=== PATIENT | female | born 2000 | race Caucasian/White ===

== ENCOUNTER 2020-06-03 19:44 | Emergency (ER) | payer MEDICAID, OTHER ==
[2020-06-03] MEDS ORDERED: DICYCLOMINE HCL 20 MG TAB ONE (20:22)
[2020-06-03 20:26] LABS: BASOPHILS % (AUTO) 0.4 % (0.0-5.0); EOSINOPHILS % (AUTO) 1.6 % (0.0-8.0); HEMATOCRIT 36.3 % (36-48); LYMPHOCYTES % (AUTO) 18.5 % (21.0-51.0); MEAN CORPUSCULAR HEMOGLOBIN 28.2 pg (27.0-33.0); MEAN CORPUSCULAR HGB CONC 33.3 g/dL (32.0-36.0); MEAN CORPUSCULAR VOLUME 84.6 fL (79-99); MONOCYTES % (AUTO) 8.2 % (3.0-13.0); NEUTROPHILS % (AUTO) 70.9 % (40.0-77.0); PLATELET COUNT (AUTO) 277 K/uL (130-400); RED BLOOD CELL COUNT(AUTO) 4.29 MIL/uL (4.00-5.50); RED CELL DISTRIBUTION WIDTH 14.6 % (11.0-15.5); WHITE BLOOD COUNT (AUTO) 13.5 K/uL (4.8-10.8)
[2020-06-03 20:27] LABS: APPEARANCE,URINE Clear (CLEAR); BILIRUBIN,URINE Negative (NEGATIVE); COLOR,URINE Yellow (YELLOW); GLUCOSE, URINE (UA) Negative (NEGATIVE); KETONES,URINE Negative (NEGATIVE); LEUKOCYTE ESTERASE ,URINE Negative (NEGATIVE); NITRATE,URINE Negative (NEGATIVE); OCCULT BLOOD,URINE Negative (NEGATIVE); PH,URINE 6.5 (5.0-8.0); PROTEIN,URINE Negative (NEGATIVE)
[2020-06-03 20:28] LABS: HCG,QUAL RESULT POSITIVE (NEGATIVE)
[2020-06-03 20:35] LABS: CREATININE 0.8 mg/dL (0.5-1.5); POTASSIUM 3.7 mmol/L (3.5-5.1)
[2020-06-03 20:41] LABS: ALBUMIN 3.4 g/dL (3.5-5.0); BILIRUBIN,TOTAL 0.2 mg/dL (0.2-1.0); TOTAL PROTEIN, SERUM 7.1 g/dL (6.0-8.3)
== END 2020-06-03 22:37 | disposition home or self-care (01) ==
LOC: EDH 19:44
DX: O26.891 Other specified pregnancy related conditions, first trimester (principal); K29.00 Acute gastritis without bleeding; Z3A.01 Less than 8 weeks gestation of pregnancy; Z72.0 Tobacco use
CPT/HCPCS: 36415; 76705; 76801; 80053; 81003; 81025; 83690; 84702; 85025

== ENCOUNTER 2020-08-08 14:33 | Emergency (ER) | payer MEDICAID ==
[~2020-08-08] VITALS: Ht 149.9 cm; Wt 52.2 kg
[2020-08-08] MEDS ORDERED: 0.9%NACL 500ML 500 ML IV ONE (14:34)
[2020-08-08 14:35] VITALS: BP 109/53
[2020-08-08 15:36] LABS: BASOPHILS % (AUTO) 0.1 % (0.0-5.0); EOSINOPHILS % (AUTO) 0.8 % (0.0-8.0); HEMATOCRIT 38.5 % (36-48); LYMPHOCYTES % (AUTO) 7.6 % (21.0-51.0); MEAN CORPUSCULAR HEMOGLOBIN 29.6 pg (27.0-33.0); MEAN CORPUSCULAR HGB CONC 33.2 g/dL (32.0-36.0); MEAN CORPUSCULAR VOLUME 88.9 fL (79-99); MONOCYTES % (AUTO) 3.6 % (3.0-13.0); NEUTROPHILS % (AUTO) 87.4 % (40.0-77.0); PLATELET COUNT (AUTO) 224 K/uL (130-400); RED BLOOD CELL COUNT(AUTO) 4.33 MIL/uL (4.00-5.50); RED CELL DISTRIBUTION WIDTH 15.4 % (11.0-15.5); WHITE BLOOD COUNT (AUTO) 11.8 K/uL (4.8-10.8)
[2020-08-08] MEDS ORDERED: NACL 0.9% 1000ML 1,000 ML IV ONE (17:15)
[2020-08-08] MEDS ORDERED: METOCLOPRAMIDE 10 MG/2 ML VIAL IVP ONE (17:15)
[2020-08-08] MEDS ORDERED: METOCLOPRAMIDE 10 MG/2 ML VIAL ONE (19:05)
[2020-08-08 19:53] LABS: APPEARANCE,URINE Turbid (CLEAR); BILIRUBIN,URINE Negative (NEGATIVE); COLOR,URINE Yellow (YELLOW); GLUCOSE, URINE (UA) Negative (NEGATIVE); KETONES,URINE Negative (NEGATIVE); LEUKOCYTE ESTERASE ,URINE Trace (NEGATIVE); NITRATE,URINE Negative (NEGATIVE); OCCULT BLOOD,URINE Negative (NEGATIVE); PH,URINE 7.5 (5.0-8.0); PROTEIN,URINE Negative (NEGATIVE)
[2020-08-08 20:04] LABS: AMORPHOUS SEDIMENT,UR Many /LPF (None Seen); BACTERIA,URINE Rare /HPF (None Seen); RBC,URINE None Seen /HPF (0-1); WBC,URINE 0-1 /HPF (0-1)
[2020-08-08] MEDS ORDERED: METO10TA41 PO (20:39)
[2020-08-08 20:41] VITALS: BP 104/63
== END 2020-08-08 20:54 | disposition home or self-care (01) ==
LOC: EDH 14:33
DX: O20.0 Threatened abortion (principal); O99.282 Endocrine, nutritional and metabolic diseases complicating pregnancy, second trimester; E86.0 Dehydration; O21.8 Other vomiting complicating pregnancy; Z3A.17 17 weeks gestation of pregnancy
CPT/HCPCS: 36415; 76805; 81001; 84702; 84703; 85025; 86900; 86901; 96361; 96374; 99284; J2765; J7040

== ENCOUNTER 2020-09-09 20:53 | Emergency (ER) | payer MEDICAID ==
[~2020-09-09] VITALS: Ht 149.9 cm; Wt 54.4 kg
[~2020-09-09 20:53] MED LIST: METO10TA41 PO
== END 2020-09-09 22:37 | disposition left against medical advice (07) ==
LOC: EDH 20:53
DX: N93.9 Abnormal uterine and vaginal bleeding, unspecified (principal); Z53.21 Procedure and treatment not carried out due to patient leaving prior to being seen by health care provider

== ENCOUNTER 2020-11-21 08:35 | Observation (INO) | payer MEDICAID ==
[~2020-11-21] VITALS: Ht 149.9 cm; Wt 54.4 kg
[2020-11-21 08:38] VITALS: BP 112/55
[2020-11-21 09:51] LABS: BILIRUBIN,URINE Negative (NEGATIVE); COLOR,URINE Yellow (YELLOW); GLUCOSE, URINE (UA) Negative (NEGATIVE); KETONES,URINE Negative (NEGATIVE); LEUKOCYTE ESTERASE ,URINE Moderate (NEGATIVE); NITRATE,URINE Negative (NEGATIVE); OCCULT BLOOD,URINE Negative (NEGATIVE); PH,URINE 7.5 (5.0-8.0); PROTEIN,URINE Negative (NEGATIVE)
[2020-11-21 09:52] LABS: APPEARANCE,URINE SLIGHTLY CLOUDY (CLEAR)
[2020-11-21 09:53] LABS: RBC,URINE 0-1 /HPF (0-1); SQUAMOUS EPITHELIAL CELL,UR Rare /HPF (0-2)
[2020-11-21 09:54] LABS: AMORPHOUS SEDIMENT,UR Few /LPF (None Seen); BACTERIA,URINE Few /HPF (None Seen)
[2020-11-21 09:58] LABS: AMPHET/METH SCREEN,URINE NEGATIVE (NEGATIVE); BARBITURATE SCREEN, URINE NEGATIVE (NEGATIVE); BENZODIAZEPINES SCREEN,URINE NEGATIVE (NEGATIVE); CANNABINOID SCREEN,URINE NEGATIVE (NEGATIVE); COCAINE SCREEN,URINE NEGATIVE (NEGATIVE); OPIATE SCREEN,URINE NEGATIVE (NEGATIVE); PHENCYCLIDINE SCREEN,URINE NEGATIVE (NEGATIVE)
[2020-11-21] MEDS ORDERED: LACTATED RINGERS 1000ML IV SCH (10:30)
== END 2020-11-21 11:20 | disposition home or self-care (01) ==
LOC: EDH 08:35 → LDH 08:54
PROVIDERS: ADMIT Obstetrics & Gynecology; ATTEND Obstetrics & Gynecology
DX: O36.8130 Decreased fetal movements, third trimester, not applicable or unspecified (principal); O62.9 Abnormality of forces of labor, unspecified; Z3A.32 32 weeks gestation of pregnancy; Z79.899 Other long term (current) drug therapy
CPT/HCPCS: 59025; 76819; 80305; 81001; 87088; 96360; G0378 ×2; G0379; J7120

== ENCOUNTER 2021-01-01 03:59 | Inpatient (IN) | payer MEDICAID ==
[~2021-01-01] VITALS: Ht 149.9 cm; Wt 62.6 kg
[2021-01-01 04:32] LABS: APPEARANCE,URINE Clear (CLEAR); BILIRUBIN,URINE Negative (NEGATIVE); COLOR,URINE Yellow (YELLOW); GLUCOSE, URINE (UA) Negative (NEGATIVE); KETONES,URINE Negative (NEGATIVE); LEUKOCYTE ESTERASE ,URINE Moderate (NEGATIVE); NITRATE,URINE Negative (NEGATIVE); OCCULT BLOOD,URINE Negative (NEGATIVE); PH,URINE 6.5 (5.0-8.0); PROTEIN,URINE Negative (NEGATIVE)
[2021-01-01 04:39] LABS: AMPHET/METH SCREEN,URINE NEGATIVE (NEGATIVE); BARBITURATE SCREEN, URINE NEGATIVE (NEGATIVE); BENZODIAZEPINES SCREEN,URINE NEGATIVE (NEGATIVE); CANNABINOID SCREEN,URINE NEGATIVE (NEGATIVE); COCAINE SCREEN,URINE NEGATIVE (NEGATIVE); OPIATE SCREEN,URINE NEGATIVE (NEGATIVE); PHENCYCLIDINE SCREEN,URINE NEGATIVE (NEGATIVE)
[2021-01-01 04:57] LABS: BACTERIA,URINE Rare /HPF (None Seen); RBC,URINE None Seen /HPF (0-1); WBC,URINE 0-1 /HPF (0-1)
[2021-01-01 04:58] LABS: SQUAMOUS EPITHELIAL CELL,UR Few /HPF (0-2)
[2021-01-01] MEDS ORDERED: LACTATED RINGERS 1000ML IV PRN (05:00)
[2021-01-01] MEDS ORDERED: NALOXONE HCL 0.4 MG/1 ML ML IV PRN (06:30)
[2021-01-01] MEDS ORDERED: MEPERIDINE-PF 50 MG/ML SYG IVP PRN (06:30)
[2021-01-01] MEDS ORDERED: PROMETHAZINE HCL 25 MG/ML 1ML AMPULE IM PRN (06:30)
[2021-01-01] MEDS ORDERED: EPHEDRINE SULFATE 50 MG/ML AMPULE IVP PRN (06:30)
[2021-01-01] MEDS ORDERED: OXYTOCIN-LR 20 UNITS/1000 ML 1,000 ML IV SCH ×2 (06:30→20:00)
[2021-01-01] MEDS ORDERED: OXYTOCIN-LR 20 UNITS/1000 ML 1,000 ML IV ONE (06:30)
[2021-01-01] MEDS ORDERED: LACTATED RINGERS 1000ML 1,000 ML IV PRN (06:30)
[2021-01-01] MEDS ORDERED: LACTATED RINGERS 500 ML 500 ML IV PRN (06:30)
[2021-01-01 06:40] LABS: HEMATOCRIT 39.8 % (36-48); MEAN CORPUSCULAR HEMOGLOBIN 29.5 pg (27.0-33.0); MEAN CORPUSCULAR HGB CONC 32.9 g/dL (32.0-36.0); MEAN CORPUSCULAR VOLUME 89.6 fL (79-99); RED BLOOD CELL COUNT(AUTO) 4.44 MIL/uL (4.00-5.50); RED CELL DISTRIBUTION WIDTH 13.6 % (11.0-15.5); WHITE BLOOD COUNT (AUTO) 12.9 K/uL (4.8-10.8)
[2021-01-01 11:25] LABS: RAPID PLASMA REAGIN REACTIVE (NONREACTIVE)
[2021-01-01 11:26] LABS: RAPID PLASMA REAGIN TITER REACTIVE >1:16 (NONREACTIVE)
[2021-01-01] MEDS ORDERED: MISOPROSTOL 200 MCG TABLET ONE (15:22)
[2021-01-01] MEDS ORDERED: LIDOCAINE HCL 1% 20 ML VIAL ONE (18:57)
[2021-01-01] MEDS ORDERED: MEPERIDINE-PF 25 MG/ML SYG ONE (19:11)
[2021-01-01] MEDS ORDERED: MEPERIDINE-PF 25 MG/ML SYG IVP SCH (19:45)
[2021-01-01] MEDS ORDERED: BENZOCAINE/LANOLIN/ALOE VERA 60 ML AEROSOL TP PRN (20:00)
[2021-01-01] MEDS ORDERED: WITCH HAZEL 1 PAD TP PRN (20:00)
[2021-01-01] MEDS ORDERED: LANOLIN 30GM OINTMENT TP PRN (20:00)
[2021-01-01] MEDS ORDERED: DIPH,PERTUSS(ACELL),TET VAC/PF 0.5 ML VIAL IM PRN (20:00)
[2021-01-01] MEDS ORDERED: MEASLES/MUMPS/RUBELLA VACCINE, LIVE 0.5 ML/VIAL SQ PRN (20:00)
[2021-01-01 20:31] VITALS: BP 124/68
[2021-01-01] MEDS: DOCUSATE SODIUM 100 MG CAP PO SCH (20:57)
[2021-01-01] MEDS: IBUPROFEN 600 MG TABLET PO PRN (20:58)
[2021-01-01 21:58] VITALS: BP 127/63
[2021-01-01] MEDS: ACETAMINOPHEN WITH CODEINE 1 TAB TAB PO PRN (22:25)
[2021-01-01 23:18] VITALS: BP 118/73
[2021-01-02 03:51] VITALS: BP 106/54
[2021-01-02] MEDS: IBUPROFEN 600 MG TABLET PO PRN ×2 (04:21→16:08)
[2021-01-02 06:27] LABS: HEMATOCRIT 34.5 % (36-48); MEAN CORPUSCULAR HEMOGLOBIN 29.2 pg (27.0-33.0); MEAN CORPUSCULAR VOLUME 88.2 fL (79-99); RED BLOOD CELL COUNT(AUTO) 3.91 MIL/uL (4.00-5.50); RED CELL DISTRIBUTION WIDTH 13.9 % (11.0-15.5); WHITE BLOOD COUNT (AUTO) 21.8 K/uL (4.8-10.8)
[2021-01-02 07:20] VITALS: BP 110/71
[2021-01-02 08:14] LABS: HEPATITIS Bs ANTIGEN SCREEN P Negative (Negative)
[2021-01-02] MEDS: DOCUSATE SODIUM 100 MG CAP PO SCH ×2 (09:10→20:12)
[2021-01-02] MEDS: ACETAMINOPHEN WITH CODEINE 1 TAB TAB PO PRN ×2 (09:11→18:42)
[2021-01-02 11:34] VITALS: BP 105/58
[2021-01-02] MEDS ORDERED: PENICILLIN G BENZATHINE LA 1.2 MILUNITS/2 ML SYG IM SCH (15:00)
[2021-01-02 16:39] VITALS: BP 127/66
[2021-01-02] MEDS ORDERED: HEMORRHOIDAL OINTMENT 57 GM CREAM.GM. RC SCH (19:30)
[2021-01-02 19:40] VITALS: BP 98/43
[2021-01-02] MEDS: ACETAMINOPHEN 325 MG TAB PO PRN (20:13)
[2021-01-03 00:34] VITALS: BP 104/42
[2021-01-03 03:43] VITALS: BP 105/58
[2021-01-03] MEDS: IBUPROFEN 600 MG TABLET PO PRN ×2 (05:57→16:21)
[2021-01-03 09:19] VITALS: BP 114/60
[2021-01-03] MEDS: DOCUSATE SODIUM 100 MG CAP PO SCH (09:22)
[2021-01-03] MEDS: ACETAMINOPHEN 325 MG TAB PO PRN (09:23)
[2021-01-03 12:16] VITALS: BP 118/66
== END 2021-01-03 16:35 | disposition home or self-care (01) | DRG 560 ==
LOC: EDH 03:59 → LDH 04:00 → OBSVTOIN 04:00 → WSH 21:36
PROVIDERS: ADMIT Obstetrics & Gynecology; ATTEND Obstetrics & Gynecology
PROC: 10E0XZZ Delivery of Products of Conception, External Approach (ICD-10-PCS; principal; 2021-01-01)
PROC: 10907ZC Drainage of Amniotic Fluid, Therapeutic from Products of Conception, Via Natural or Artificial Opening (ICD-10-PCS; 2021-01-01)
PROC: 0W8NXZZ Division of Female Perineum, External Approach (ICD-10-PCS; 2021-01-01)
PROC: 3E0R3BZ Introduction of Anesthetic Agent into Spinal Canal, Percutaneous Approach (ICD-10-PCS; 2021-01-01)
PROC: 00HU33Z Insertion of Infusion Device into Spinal Canal, Percutaneous Approach (ICD-10-PCS; 2021-01-01)
DX: O98.12 Syphilis complicating childbirth (principal); A53.0 Latent syphilis, unspecified as early or late; O98.52 Other viral diseases complicating childbirth; D72.829 Elevated white blood cell count, unspecified; B00.9 Herpesviral infection, unspecified; O99.12 Other diseases of the blood and blood-forming organs and certain disorders involving the immune mechanism complicating childbirth; O69.1XX0 Labor and delivery complicated by cord around neck, with compression, not applicable or unspecified; Z37.0 Single live birth; Z3A.38 38 weeks gestation of pregnancy
CPT/HCPCS: 36415; 80305; 81001; 85027; 86592; 86701; 86780; 86850; 86900; 86901; 87088; 87340; 87390; A4314; G0378; J0561; J2175; J2590; J7120

== ENCOUNTER 2021-01-08 14:19 | Observation (INO) | payer MEDICAID ==
[~2021-01-08] VITALS: Ht 147.3 cm; Wt 59.0 kg
[2021-01-08] MEDS ORDERED: PENICILLIN G BENZATHINE LA 1.2 MILUNITS/2 ML SYG IM SCH (15:00)
[2021-01-08 15:05] VITALS: BP 113/62
[2021-01-08 15:30] VITALS: BP 113/65
== END 2021-01-08 15:35 | disposition home or self-care (01) ==
LOC: WSH 14:19
PROVIDERS: ADMIT Obstetrics & Gynecology; ATTEND Obstetrics & Gynecology
DX: O98.13 Syphilis complicating the puerperium (principal); A53.9 Syphilis, unspecified; D72.829 Elevated white blood cell count, unspecified
CPT/HCPCS: 96372; G0378; G0379; J0561

== ENCOUNTER 2021-06-24 13:20 | Emergency (ER) | payer MEDICAID ==
[~2021-06-24] VITALS: Ht 149.9 cm; Wt 45.4 kg
[2021-06-24] MEDS ORDERED: 0.9%NACL 1000ML 1,000 ML IV SCH (13:30)
[2021-06-24 13:48] LABS: APPEARANCE,URINE Cloudy (CLEAR); BILIRUBIN,URINE Negative (NEGATIVE); COLOR,URINE Dark Yellow (YELLOW); GLUCOSE, URINE (UA) Negative (NEGATIVE); KETONES,URINE 15 mg/dL (NEGATIVE); LEUKOCYTE ESTERASE ,URINE Moderate (NEGATIVE); NITRATE,URINE Negative (NEGATIVE); OCCULT BLOOD,URINE Negative (NEGATIVE); PH,URINE 6.5 (5.0-8.0); PROTEIN,URINE Trace mg/dL (NEGATIVE)
[2021-06-24 13:56] LABS: AMPHET/METH SCREEN,URINE NEGATIVE (NEGATIVE); BARBITURATE SCREEN, URINE NEGATIVE (NEGATIVE); BENZODIAZEPINES SCREEN,URINE POSITIVE (NEGATIVE); CANNABINOID SCREEN,URINE POSITIVE (NEGATIVE); COCAINE SCREEN,URINE POSITIVE (NEGATIVE); OPIATE SCREEN,URINE POSITIVE (NEGATIVE); PHENCYCLIDINE SCREEN,URINE NEGATIVE (NEGATIVE)
[2021-06-24 14:02] LABS: BASOPHILS % (AUTO) 0.5 % (0.0-5.0); EOSINOPHILS % (AUTO) 2.8 % (0.0-8.0); HEMATOCRIT 42.8 % (36-48); LYMPHOCYTES % (AUTO) 16.6 % (21.0-51.0); MEAN CORPUSCULAR HEMOGLOBIN 28.5 pg (27.0-33.0); MEAN CORPUSCULAR HGB CONC 32.2 g/dL (32.0-36.0); MEAN CORPUSCULAR VOLUME 88.2 fL (79-99); MONOCYTES % (AUTO) 11.7 % (3.0-13.0); NEUTROPHILS % (AUTO) 68.1 % (40.0-77.0); PLATELET COUNT (AUTO) 260 K/uL (130-400); RED BLOOD CELL COUNT(AUTO) 4.85 MIL/uL (4.00-5.50); RED CELL DISTRIBUTION WIDTH 13.3 % (11.0-15.5)
[2021-06-24 14:16] LABS: CREATININE 0.9 mg/dL (0.5-1.5); POTASSIUM 3.2 mmol/L (3.5-5.1)
[2021-06-24 14:17] LABS: ALBUMIN 3.5 g/dL (3.5-5.0); BILIRUBIN,TOTAL 0.6 mg/dL (0.2-1.0); TOTAL PROTEIN, SERUM 6.7 g/dL (6.0-8.3)
[2021-06-24] MEDS ORDERED: CEFTRIAXONE 1G VIAL IVP ONE (14:30)
[2021-06-24] MEDS ORDERED: ONDANSETRON 4MG INJ IVP ONE (14:30)
[2021-06-24] MEDS ORDERED: FAMOTIDINE 20MG VIAL IV ONE (14:30)
[2021-06-24 14:31] LABS: BACTERIA,URINE Few /HPF (None Seen); RBC,URINE None Seen /HPF (0-1)
[2021-06-24 14:32] LABS: SQUAMOUS EPITHELIAL CELL,UR 0-2 /HPF (0-2)
[2021-06-24 14:56] LABS: HCG,QUAL RESULT NEGATIVE (NEGATIVE)
[2021-06-24 14:58] LABS: ACETAMINOPHEN < 1 mcg/mL (10-30); SALICYLATE < 2.8 mg/dL (2.8-20.0)
[2021-06-24] MEDS ORDERED: POTASSIUM BICARB/CIT AC 25 MEQ TABLET.EFF PO ONE (15:00)
[2021-06-24] MEDS ORDERED: POTASSIUM BICARB/CIT AC 25 MEQ TABLET.EFF ONE (15:02)
[2021-06-24] MEDS ORDERED: ONDA4TAB10 PO (15:54)
[2021-06-24] MEDS ORDERED: CEPH500B PO (15:54)
[2021-06-24 16:01] VITALS: BP 134/88
== END 2021-06-24 16:14 | disposition home or self-care (01) ==
LOC: EDH 13:20
DX: F19.10 Other psychoactive substance abuse, uncomplicated (principal); E86.0 Dehydration; E87.6 Hypokalemia; N39.0 Urinary tract infection, site not specified
CPT/HCPCS: 36415; 80053; 80305; 81001; 81025; 82550; 84484; 85025; 87088; 93005; 96361; 96374; 96375; 99284; G0481; J0696; J2405; J7030; S0028; J3490

== ENCOUNTER 2021-10-10 13:48 | Emergency (ER) | payer MEDICAID ==
[~2021-10-10] VITALS: Ht 149.9 cm; Wt 57.6 kg
[~2021-10-10 13:48] MED LIST changes: +CEPH500B PO; -METO10TA41 PO; +ONDA4TAB10 PO
[2021-10-10 14:17] LABS: APPEARANCE,URINE CLEAR (CLEAR); BILIRUBIN,URINE NEGATIVE (NEGATIVE); COLOR,URINE YELLOW (YELLOW); GLUCOSE, URINE (UA) NEGATIVE (NEGATIVE); KETONES,URINE NEGATIVE (NEGATIVE); LEUKOCYTE ESTERASE ,URINE SMALL (NEGATIVE); NITRATE,URINE NEGATIVE (NEGATIVE); OCCULT BLOOD,URINE NEGATIVE (NEGATIVE); PROTEIN,URINE NEGATIVE (NEGATIVE); UROBILINOGEN,URINE 0.2 mg/dL (0.2-1.0)
[2021-10-10 14:19] LABS: HCG,QUALITATIVE URINE NEGATIVE (NEGATIVE)
[2021-10-10 14:20] LABS: AMPHET/METH SCREEN,URINE NEGATIVE (NEGATIVE); BARBITURATE SCREEN, URINE NEGATIVE (NEGATIVE); BENZODIAZEPINES SCREEN,URINE NEGATIVE (NEGATIVE); CANNABINOID SCREEN,URINE NEGATIVE (NEGATIVE); COCAINE SCREEN,URINE NEGATIVE (NEGATIVE); PHENCYCLIDINE SCREEN,URINE NEGATIVE (NEGATIVE)
[2021-10-10 14:25] LABS: BASOPHILS % (AUTO) 0.3 % (0.0-5.0); EOSINOPHILS % (AUTO) 1.7 % (0.0-8.0); LYMPHOCYTES % (AUTO) 37.3 % (21.0-51.0); MEAN CORPUSCULAR HEMOGLOBIN 28.5 pg (27.0-33.0); MEAN CORPUSCULAR HGB CONC 32.8 g/dL (32.0-36.0); MONOCYTES % (AUTO) 10.4 % (3.0-13.0); PLATELET COUNT (AUTO) 319 K/uL (130-400); RED CELL DISTRIBUTION WIDTH 15.5 % (11.0-15.5); WHITE BLOOD COUNT (AUTO) 6.5 K/uL (4.8-10.8)
[2021-10-10 14:30] LABS: BACTERIA,URINE Few /HPF (None Seen); MUCUS,URINE Rare LPF (None Seen); SQUAMOUS EPITHELIAL CELL,UR Many /HPF (0-2)
[2021-10-10] MEDS ORDERED: 0.9%NACL 1000ML 1,000 ML IV ONE (14:30)
[2021-10-10] MEDS ORDERED: HYDROXYZINE 25 MG TABLET PO ONE (14:30)
[2021-10-10 14:35] LABS: CREATININE 0.8 mg/dL (0.5-1.5); POTASSIUM 3.9 mmol/L (3.5-5.1)
[2021-10-10 14:49] LABS: ALBUMIN 3.9 g/dL (3.5-5.0); TOTAL PROTEIN, SERUM 7.8 g/dL (6.0-8.3)
[2021-10-10] MEDS ORDERED: HYDR-3422 PO (15:27)
[2021-10-10 15:35] VITALS: BP 113/69
== END 2021-10-10 15:37 | disposition home or self-care (01) ==
LOC: EDH 13:48
DX: F41.9 Anxiety disorder, unspecified (principal)
CPT/HCPCS: 99284; 96360; 84484; 80053; 80305; 85025; 81025; 36415; 93005; 81001; J7030

== ENCOUNTER 2021-11-30 15:03 | Emergency (ER) | payer MEDICAID ==
[~2021-11-30] VITALS: Ht 147.3 cm; Wt 49.9 kg
[~2021-11-30 15:03] MED LIST changes: +HYDR-3422 PO
[2021-11-30 16:19] LABS: BASOPHILS % (AUTO) 0.3 % (0.0-5.0); EOSINOPHILS % (AUTO) 2.3 % (0.0-8.0); HEMATOCRIT 40.4 % (36-48); MEAN CORPUSCULAR HEMOGLOBIN 28.1 pg (27.0-33.0); MEAN CORPUSCULAR HGB CONC 32.9 g/dL (32.0-36.0); MEAN CORPUSCULAR VOLUME 85.4 fL (79-99); MONOCYTES % (AUTO) 9.7 % (3.0-13.0); NEUTROPHILS % (AUTO) 64.5 % (40.0-77.0); PLATELET COUNT (AUTO) 243 K/uL (130-400); RED BLOOD CELL COUNT(AUTO) 4.73 MIL/uL (4.00-5.50); RED CELL DISTRIBUTION WIDTH 13.9 % (11.0-15.5); WHITE BLOOD COUNT (AUTO) 9.2 K/uL (4.8-10.8)
[2021-11-30 16:32] LABS: CREATININE 0.9 mg/dL (0.5-1.5); POTASSIUM 3.6 mmol/L (3.5-5.1)
[2021-11-30 16:36] LABS: ALBUMIN 3.4 g/dL (3.5-5.0); TOTAL PROTEIN, SERUM 7.5 g/dL (6.0-8.3)
[2021-11-30] MEDS ORDERED: SULF1TAB42 PO (17:20)
[2021-11-30] MEDS ORDERED: IBUP-2070 PO (17:20)
[2021-11-30] MEDS ORDERED: SULFAMETHOX-TMP DS 800/160 TAB PO SCH (17:30)
[2021-11-30] MEDS ORDERED: SULFAMETHOX-TMP DS 800/160 TAB ONE (17:31)
[2021-11-30] MEDS ORDERED: IBUPROFEN 600 MG TABLET ONE (17:43)
[2021-11-30 17:44] VITALS: BP 119/87
[2021-11-30] MEDS ORDERED: IBUPROFEN 600 MG TABLET PO ONE (18:00)
== END 2021-11-30 17:46 | disposition home or self-care (01) ==
LOC: EDH 15:03
DX: L02.413 Cutaneous abscess of right upper limb (principal); F19.10 Other psychoactive substance abuse, uncomplicated; Z79.899 Other long term (current) drug therapy
CPT/HCPCS: 10160; 36415; 76882; 80053; 81025; 85025

== ENCOUNTER 2023-05-08 19:44 | Emergency (ER) | payer BC, MEDICAID ==
[~2023-05-08] VITALS: Ht 162.6 cm; Wt 54.4 kg
[~2023-05-08 19:44] MED LIST changes: +IBUP-2070 PO; +SULF1TAB42 PO
[2023-05-08 19:54] VITALS: BP 120/85; PULSE 85; RESP 18; O2SAT 100
[2023-05-08 20:01] LABS: APPEARANCE,URINE CLOUDY (CLEAR); BILIRUBIN,URINE NEGATIVE (NEGATIVE); COLOR,URINE YELLOW (YELLOW); GLUCOSE, URINE (UA) NEGATIVE (NEGATIVE); KETONES,URINE 5 mg/dL (NEGATIVE); LEUKOCYTE ESTERASE ,URINE NEGATIVE Leu/uL (NEGATIVE); NITRATE,URINE NEGATIVE (NEGATIVE); OCCULT BLOOD,URINE LARGE (NEGATIVE); PH,URINE 6.5 (5.0-8.0); PROTEIN,URINE 20 mg/dL (NEGATIVE); UROBILINOGEN,URINE 0.2 mg/dL (0.2-1.0)
[2023-05-08 20:03] LABS: ADD UA MICROSCOPIC YES
[2023-05-08 20:03] LABS: RAPID GROUP A STREP negative (NEGATIVE)
[2023-05-08 20:05] LABS: BACTERIA,URINE RARE /HPF (None Seen); HCG,QUALITATIVE URINE POSITIVE (NEGATIVE); MUCUS,URINE FEW LPF (None Seen); RBC,URINE TNTC /HPF (0-1); SQUAMOUS EPITHELIAL CELL,UR RARE /HPF (0-2); UNCLASSIFIED CRYSTAL 2 /HPF (None Seen)
[2023-05-08 20:09] LABS: SARS-CoV-2, RNA, NAAT NEGATIVE SARS CoV-2 (NEGATIVE)
[2023-05-08 20:14] LABS: INFLUENZA TYPE A Negative For Type A (NEGATIVE); INFLUENZA TYPE B Negative For Type B (NEGATIVE)
[2023-05-08 20:28] LABS: BASOPHILS # (AUTO) 0.04 K/uL (0.00-0.20); BASOPHILS % (AUTO) 0.2 % (0.0-5.0); EOSINOPHILS # (AUTO) 0.07 K/uL (0.00-0.70); EOSINOPHILS % (AUTO) 0.4 % (0.0-8.0); LYMPHOCYTES # (AUTO) 1.8 K/uL (1.0-4.8); LYMPHOCYTES % (AUTO) 10.5 % (21.0-51.0); MEAN CORPUSCULAR HGB CONC 33.7 g/dL (32.0-36.0); MEAN CORPUSCULAR VOLUME 86.1 fL (79-99); MONOCYTES # (AUTO) 0.6 K/uL (0.1-1.0); MONOCYTES % (AUTO) 3.2 % (3.0-13.0); NEUTROPHILS # (AUTO) 14.5 K/uL (1.8-7.7); NEUTROPHILS % (AUTO) 85.1 % (40.0-77.0); PLATELET COUNT (AUTO) 365 K/uL (130-400); RED BLOOD CELL COUNT(AUTO) 4.76 MIL/uL (4.00-5.50); RED CELL DISTRIBUTION WIDTH 14.1 % (11.0-15.5)
[2023-05-08] MEDS: SOLU-MEDROL 125MG VIAL IVP ONE (20:53)
[2023-05-08 21:44] LABS: AMPHET/METH SCREEN,URINE NEGATIVE (NEGATIVE); BARBITURATE SCREEN, URINE NEGATIVE (NEGATIVE); BENZODIAZEPINES SCREEN,URINE NEGATIVE (NEGATIVE); CANNABINOID SCREEN,URINE POSITIVE (NEGATIVE); COCAINE SCREEN,URINE POSITIVE (NEGATIVE); OPIATE SCREEN,URINE NEGATIVE (NEGATIVE); PHENCYCLIDINE SCREEN,URINE NEGATIVE (NEGATIVE)
== END 2023-05-08 22:00 | disposition home or self-care (01) ==
LOC: EDH 19:44
DX: O20.9 Hemorrhage in early pregnancy, unspecified (principal); O26.892 Other specified pregnancy related conditions, second trimester; F19.10 Other psychoactive substance abuse, uncomplicated; Z3A.22 22 weeks gestation of pregnancy; Z20.822 Contact with and (suspected) exposure to COVID-19
CPT/HCPCS: 36415; 76801; 80305; 81001; 81025; 84702; 85025; 86850; 86900; 86901; 87635; 87804; 87880; J2930